=== PATIENT | female | born 1985 | race African-American/Black ===

== ENCOUNTER 2018-07-06 08:36 | Emergency (ER) | payer OTHER ==
[2018-07-06] MEDS: HYDROCODONE/APAP (5/325) TAB PO (09:41)
== END 2018-07-06 10:55 | disposition home or self-care (01) ==
LOC: FTE 08:36
DX: S16.1XXA Strain of muscle, fascia and tendon at neck level, initial encounter (principal); F17.210 Nicotine dependence, cigarettes, uncomplicated; S49.92XA Unspecified injury of left shoulder and upper arm, initial encounter; S29.001A Unspecified injury of muscle and tendon of front wall of thorax, initial encounter; R07.89 Other chest pain; V49.49XA Driver injured in collision with other motor vehicles in traffic accident, initial encounter
CPT/HCPCS: 71046; 73030; 99284-25